=== PATIENT | female | born 1990 | race Caucasian/White ===

== ENCOUNTER → 2022-07-13 | Outpatient (CLI) | payer OTHER, SELFPAY ==
[2022-07-13 13:50] LABS: Amphetamine Urine VISTA NEGATIVE (<1000 ng/mL); Barbiturate Urine VISTA NEGATIVE (< 200 ng/mL); Benzodiazepine Urine VISTA NEGATIVE (< 200 ng/mL); Cocaine Urine VISTA NEGATIVE (< 300 ng/mL); Ecstacy Urine VISTA NEGATIVE (< 500 ng/mL); Methadone Urine VISTA NEGATIVE (< 300 ng/mL); PCP Urine VISTA NEGATIVE (< 25 ng/mL); THC Urine VISTA NEGATIVE (< 50 ng/mL); Vista UDS pH Range 6
[2022-07-17 22:06] LABS: Chlamydia By Nucleic Acid AMP Negative (Negative)
[2022-07-18 13:15] LABS: Gonococcus By Nucleic Acid AMP Negative (Negative)
== END | disposition home or self-care (01) ==
LOC: LABSPEC 13:13
PROVIDERS: Referring Provider Obstetrics & Gynecology; Visit Provider Obstetrics & Gynecology
DX: Z34.00 Encounter for supervision of normal first pregnancy, unspecified trimester (principal)
CPT/HCPCS: 80307; 87086; 87491; 87591

== ENCOUNTER → 2022-07-15 | Outpatient (CLI) | payer OTHER, SELFPAY | END | disposition home or self-care (01) | LOC: LAB 12:04 | PROVIDERS: Referring Provider Obstetrics & Gynecology; Visit Provider Obstetrics & Gynecology | DX: O20.0 Threatened abortion (principal); Z3A.00 Weeks of gestation of pregnancy not specified | CPT/HCPCS: 36415; 84702 ==

== ENCOUNTER → 2022-07-24 | Outpatient (CLI) | payer OTHER, SELFPAY ==
--- NOTE | 2022-07-24 14:21 | US_ITS ---
STUDY: FIRST TRIMESTER OBSTETRICAL ULTRASOUND REASON FOR EXAM: Female, 32 years old size and dates, early survey LMP: 05/11/2022 TECHNIQUE: Transabdominal and Transvaginal TECHNICAL QUALITY: Adequate. PRIOR ULTRASOUND: None. FINDINGS: There is visualization of a single gestational sac in a normal intrauterine position. The mean sac diameter (MSD) measures 1.73 cm, indicating an estimated gestational age (EGA) of 6 weeks, 4 days. The gestational sac shape is slightly irregular. There is no demonstrated yolk sac. The placenta is non-visualized. There is a questionable pole identified image 38. There is NO demonstrated cardiac activity The uterus measures 9.9 x 5.7 x 5.2 cm. There is no demonstrated uterine fibroid. The cervix is closed. The right ovary measures 3.9 x 2.1 x 2.7 cm. There is a heterogeneous structure with increased vascularity measuring 2.6 x 1.8 x 2.4 cm The left ovary measures 3.5 x 2 x 2.5 cm. There is no left ovarian cyst. There is no visualized left adnexal mass or complex lesion. There is no fluid in the cul de sac. US/Transvaginal w/Preg US IMPRESSION: There is an irregular appearing gestational sac within the uterus without a clearly defined yolk sac pole or heart rate. Gestational sac measures 1.3 cm corresponding to an ultrasound dating of 6 weeks 4 days. At this gestational age, there should be a heart rate identified. Findings suggestive of nonviability. There is a hyperemic heterogeneous 2.6 x 1.8 x 2.4 cm mass near the right ovary but there is no associated free fluid nonetheless, the increased vascularity is a concern for possible ectopic and follow-up ultrasound is recommended to show resolution or stability. A heterotopic is extremely rare. No demonstrated free fluid or left adnexal lesion. Electronically Signed: Matthew Ellison MD at 9:32 EDT ,
== END | disposition home or self-care (01) ==
PROVIDERS: Referring Provider Obstetrics & Gynecology; Visit Provider Obstetrics & Gynecology
DX: O20.0 Threatened abortion (principal); Z3A.00 Weeks of gestation of pregnancy not specified
CPT/HCPCS: 76817

== ENCOUNTER → 2023-08-14 | Outpatient (CLI) | payer SELFPAY ==
[2023-08-14 10:28] LABS: HIV - WCH Non-Reactive (Nonreactive); Hepatitis C Antibody Non-Reactive (Nonreactive); Syphilis Antibodies Non-reactive
[2023-08-15 06:09] LABS: HSV 1 IgG < 0.91 index (0.00-0.90); HSV 2 IgG 5.74 index (0.00-0.90)
[2023-08-15 22:06] LABS: Chlamydia By Nucleic Acid AMP Negative (Negative); Gonococcus By Nucleic Acid AMP Negative (Negative)
== END | disposition home or self-care (01) ==
PROVIDERS: Referring Provider Nurse Practitioner Women's Health; Visit Provider Nurse Practitioner Women's Health
DX: Z11.3 Encounter for screening for infections with a predominantly sexual mode of transmission (principal); Z20.2 Contact with and (suspected) exposure to infections with a predominantly sexual mode of transmission; N90.89 Other specified noninflammatory disorders of vulva and perineum
CPT/HCPCS: 36415; 86695; 86696; 86703; 86780; 86803; 87255; 87491; 87591